=== PATIENT | female | born 1960 | race Caucasian/White ===

== ENCOUNTER → 2016-06-06 | Outpatient (CLI) | payer BC ==
--- NOTE | 2016-06-06 23:08 | CONS ---
DATE OF CONSULTATION: 06/06/2016 REASON FOR CONSULTATION: Sleep apnea. 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 She is obese and she has a BMI of 55.1. She also snores loudly. She had 2 occasions when she was waking up from sleep due to increased tachycardia and palpitations, and she thinks that these were SVTs. No official documentation through Holter monitoring has been done. The patient has consulted with Dr. Simon, her scrub woman, who in turn recommended a sleep evaluation, knowing that these tachycardic events occurred while the patient was sleeping and it woke her up from sleep. In addition, the patient has obvious features that would suggest the possibility of obstructive sleep apnea. The patient typically goes to bed around 11 p.m., wakes up at 6:30 a.m. in the morning. She has some degree of tiredness and fatigue and sleepiness and she has an Forsyth score of 10. She prefers to sleep on her side, and she does not sleep on her back. She wakes up many times in the middle of the night and she counts at least 3 to 4 ( ) where she wakes up. No sleep paralysis. No hallucinations. No cataplexy. No restlessness in the lower extremities. PAST MEDICAL HISTORY: 1. Obesity. 2. Questionable nocturnal arrhythmias; possibly SVTs on 2 separate occasions. 3. Hypertension. 4. Hypothyroidism. 5. Diabetes mellitus. 6. Hyperlipidemia. 7. History of thyroid cancer, status post thyroidectomy. The patient is being treated with thyroid hormone replacement. PAST SURGICAL HISTORY: None significant for the past 3 years. DRUG ALLERGIES: DIFLUCAN. Outpatient medication list includes: 1. Lotrel. 2. Synthroid. 3. Vitamin D. 4. Metoprolol. 5. Metformin. 6. Simvastatin. FAMILY HISTORY: Coronary artery disease in her father. SOCIAL HISTORY: The patient is a nonsmoker. No history of alcohol. No history of IV drugs. She is a teacher at [employer]. REVIEW OF SYSTEMS: Twelve-point review of systems was done. Positive findings were all mentioned above in the history of present illness. CURRENT VITALS: BP is 145/86, pulse 96, respirations 16, temperature 97.8. Saturations are 96% on room air. Weight is 287. Height is 63-1/2 inches. Neck size 17 inches. Forsyth score is at 10. BMI is 55.1. GENERAL APPEARANCE: Calm, comfortable, obese. HEENT: Negative for goiter or neck masses. Mallampati class IV. LUNGS: Clear to auscultation. HEART: Sounds are regular rate and rhythm. Normal S1, S2. No S3. No S4. No murmurs. ABDOMEN: Soft, nontender. No organomegaly. EXTREMITIES: There is no edema. There is no cyanosis or clubbing at this point. IMPRESSION: 1. Obstructive sleep apnea suspected, currently under investigation. 2. Nocturnal tachyarrhythmia, currently under investigation. 3. Obesity with a body mass index of 55. 4. Hypersomnia. Forsyth score of 10. 5. Hypertension. 6. Hypothyroidism. 7. Thyroid cancer with previous thyroidectomy. 8. Diabetes mellitus. 9. Hyperlipidemia. PLAN: 1. Encourage weight loss. 2. Follow up on thyroid function tests through the primary care physician. 3. Proceed with a polysomnogram to evaluate for any significant sleep breathing disorder that may need to be treated.
== END | disposition home or self-care (01) ==
LOC: SLEEP 13:41
PROVIDERS: ATTEND Internal Medicine Critical Care Medicine
DX: G47.33 Obstructive sleep apnea (adult) (pediatric) (principal); R00.0 Tachycardia, unspecified; E66.9 Obesity, unspecified; Z68.43 Body mass index [BMI] 50.0-59.9, adult; G47.10 Hypersomnia, unspecified; I10 Essential (primary) hypertension; E03.9 Hypothyroidism, unspecified; Z85.850 Personal history of malignant neoplasm of thyroid; Z98.890 Other specified postprocedural states; E11.9 Type 2 diabetes mellitus without complications; E78.5 Hyperlipidemia, unspecified; Z79.84 Long term (current) use of oral hypoglycemic drugs; Z79.899 Other long term (current) drug therapy; Z88.8 Allergy status to other drugs, medicaments and biological substances
CPT/HCPCS: 99211

== ENCOUNTER → 2016-06-29 | Outpatient (CLI) | payer BC ==
--- NOTE | 2016-07-03 11:40 | MM ---
Reason for exam: screening (asymptomatic). Last mammogram was performed 1 year and 2 months ago. History: Patient history of other cancer. Benign excisional biopsy of the left breast, February 2004. Benign stereotactic core biopsy of the left breast, January 08, 2003. Benign stereotactic core biopsy of the left breast, August 05, 1999. 2 core biopsies of the left breast. Taking unspecified hormones for 2 years beginning at age 45. Physical Findings: A clinical breast exam by your physician is recommended on an annual basis and results should be correlated with mammographic findings. MG 3D Screening Mammo W/Cad Bilateral CC and MLO view(s) were taken. Prior study comparison: April 21, 2015, bilateral MG 3d screening mammo w/cad. October 27, 2013, bilateral MG screening mammo w CAD. There are scattered fibroglandular densities. Finding: There are typically benign calcifications in both breasts. Previous mammotome biopsy in the left breast. No significant changes in finding since April 21, 2015 and October 27, 2013. ASSESSMENT: Benign, BI-RAD 2 RECOMMENDATION: Routine screening mammogram of both breasts in 1 year.
== END | disposition home or self-care (01) ==
LOC: RADMAMWWP 07:22
PROVIDERS: ATTEND Obstetrics & Gynecology
DX: Z12.31 Encounter for screening mammogram for malignant neoplasm of breast (principal)
CPT/HCPCS: 77063; G0202

== ENCOUNTER → 2016-10-31 | Outpatient (CLI) | payer BC ==
--- NOTE | 2016-11-01 07:37 | PN ---
This patient is 56 years old and she is coming in for a compliancy check. The patient was diagnosed having obstructive sleep apnea with an AHI of 21 and currently she is in an Auto CPAP unit. She is doing well, no complaints. ( ) depression is at 14. She is averaging around 5.6 hours of CPAP use every night. Here CPAP is for more than 4 hours in 24 hours of the past 30 days. AHI while on treatment was found to be 1.6. She is looking for an alternative mask other than the one that she has and we were able to give her a new one, the nasal pillow based on our mask fitting today. BP is 155/74, pulse 80, respirations 16, weight is 280, BMI is 48. Height is 5, 4. GENERAL APPEARANCE: Calm, comfortable. HEENT: Short neck, crowding of posterior pharynx. LUNGS: Diminished, otherwise clear. Heart sounds regular rate and rhythm, no S1, S2. ABDOMEN: Soft, nontender. No organomegaly. EXTREMITIES: No edema, no cyanosis or clubbing. IMPRESSION: 1. Symptomatic obstructive sleep apnea with an apnea-hypopnea index of 21.4 with successful CPAP therapy. 2. Snoring, recovered. 3. Obesity, body mass index is a 48. 4. Hypertension with hypothyroidism. 5. Diabetes mellitus. 6. Hyperlipidemia. 7. Thyroid cancer. PLAN: 1. Continue same setting in terms of CPAP therapy. 2. Encourage further weight loss. 3. Compliance data is adequate. 4. Will continue to follow. [facility]
== END ==
LOC: SLEEP 15:00
PROVIDERS: ATTEND Internal Medicine Critical Care Medicine
DX: G47.33 Obstructive sleep apnea (adult) (pediatric) (principal); E66.9 Obesity, unspecified; E03.9 Hypothyroidism, unspecified; E78.5 Hyperlipidemia, unspecified; E11.9 Type 2 diabetes mellitus without complications; I10 Essential (primary) hypertension; C73 Malignant neoplasm of thyroid gland

== ENCOUNTER → 2017-11-26 | Outpatient (CLI) | payer BC ==
--- NOTE | 2017-11-28 10:06 | MM ---
Reason for exam: screening (asymptomatic). Last mammogram was performed 1 year and 5 months ago. History: Patient history of other cancer. Benign excisional biopsy of the left breast, February 2004. Benign stereotactic core biopsy of the left breast, January 08, 2003. Benign stereotactic core biopsy of the left breast, August 05, 1999. 2 core biopsies of the left breast. Taking unspecified hormones for 2 years beginning at age 45. Physical Findings: A clinical breast exam by your physician is recommended on an annual basis and results should be correlated with mammographic findings. MG 3D Screening Mammo W/Cad Bilateral CC and MLO view(s) were taken. Prior study comparison: June 29, 2016, bilateral MG 3d screening mammo w/cad. April 21, 2015, bilateral MG 3d screening mammo w/cad. There are scattered fibroglandular densities. Previous mammotome biopsy in the left breast. There is chronic nodularity in the right breast. No significant changes when compared with prior studies. ASSESSMENT: Benign, BI-RAD 2 RECOMMENDATION: Routine screening mammogram of both breasts in 1 year.
== END | disposition home or self-care (01) ==
LOC: RADMAMWWP 15:34
PROVIDERS: ATTEND Family Medicine
DX: Z12.31 Encounter for screening mammogram for malignant neoplasm of breast (principal)
CPT/HCPCS: 77063; 77067

== ENCOUNTER → 2019-06-13 | Outpatient (CLI) | payer BC ==
--- NOTE | 2019-06-16 08:23 | MM ---
Reason for exam: screening (asymptomatic). Last mammogram was performed 1 year and 7 months ago. History: Patient has history of other cancer at age 45. Benign excisional biopsy of the left breast, February 2004. Benign stereotactic core biopsy of the left breast, January 08, 2003. Benign stereotactic core biopsy of the left breast, August 05, 1999. 2 core biopsies of the left breast. Took unspecified hormones for 2 years beginning at age 45. Physical Findings: A clinical breast exam by your physician is recommended on an annual basis and results should be correlated with mammographic findings. MG 3D Screening Mammo W/Cad Bilateral CC and MLO view(s) were taken. Prior study comparison: November 26, 2017, bilateral MG 3d screening mammo w/cad. June 29, 2016, bilateral MG 3d screening mammo w/cad. The breast tissue is heterogeneously dense. This may lower the sensitivity of mammography. No suspicious abnormality. Left biopsy marker noted. No significant changes when compared with prior studies. ASSESSMENT: Negative, BI-RAD 1 RECOMMENDATION: Routine screening mammogram of both breasts in 1 year.
== END | disposition home or self-care (01) ==
LOC: RADMAMWWP 11:14
PROVIDERS: ATTEND Family Medicine
DX: Z12.31 Encounter for screening mammogram for malignant neoplasm of breast (principal)
CPT/HCPCS: 77063; 77067

== ENCOUNTER → 2021-03-30 | Outpatient (CLI) | payer BC ==
--- NOTE | 2021-03-30 16:15 | BD ---
EXAMINATION TYPE: Axial Bone Density DATE OF EXAM: 03/30/2021 COMPARISON: NONE CLINICAL HISTORY: Height: 64 Weight: 300.4 FRAX RISK QUESTIONS: Alcohol (3 or more units per day): no Family History (Parent hip fracture): no Glucocorticoids (More than 3mos): no (Ex: prednisone, prednisolone, methylprednisolone, dexamethasone, and hydrocortisone). History of Fracture in Adulthood: yes Secondary Osteoporosis: 1. Type 1 Diabetes: no 2. Hyperthyroidism: no 3. Menopause before 45: yes 4. Malnutrition: no 5. Chronic liver disease: no Rheumatoid Arthritis: no Current Tobacco Use: no RISK FACTORS HISTORY OF: Surgery to Spine/Hip(right/left)/Wrist (right/left): no Family History of Osteoporosis: no Active: yes Diet low in dairy products/other sources of calcium: no Postmenopausal woman: yes Lost more than 2 inches in height since high school: no Adrenal Insufficiency: no MEDICATIONS: vit d, water pill, blood pressure meds, crestor, Thyroid Medications: synthroid How Long: since 2005 Additional History: thyroid cancer 2005 EXAM MEASUREMENTS: Bone mineral densitometry was performed using the [employer] System. Bone mineral density as measured about the Lumbar spine is: ----- L1-L4(G/cm2): 1.141 T Score Values are as follows: ----- L2: -1.5 ----- L3: 0.0 ----- L4: 0.9 ----- L1-L4: -0.3 Bone mineral density : baseline Bone mineral density about the R hip (g/cm2): 0.945 Bone mineral density about the L hip (g/cm2): 0.838 T Score values are as follows: -----R Neck: -0.7 -----L Neck: -1.4 -----R Total: -0.3 -----L Total: -0.8 Bone mineral density : baseline IMPRESSION: Osteopenia (T Score between -2.5 and -1). There is slightly increased risk of fracture and the patient may be considered for treatment. Re-Screen 2-5 years. NOTE: T-SCORE=SD OF THE YOUNG ADULT MEAN.
--- NOTE | 2021-04-01 11:43 | MM ---
Reason for exam: screening (asymptomatic). Last mammogram was performed 1 year and 10 months ago. History: Patient is postmenopausal and has history of other cancer at age 45. Benign excisional biopsy of the left breast, February 2004. Benign stereotactic core biopsy of the left breast, January 08, 2003. Benign stereotactic core biopsy of the left breast, August 05, 1999. 2 core biopsies of the left breast. Took unspecified hormones for 2 years beginning at age 45. Physical Findings: A clinical breast exam by your physician is recommended on an annual basis and results should be correlated with mammographic findings. MG 3D Screening Mammo W/Cad Bilateral CC and MLO view(s) were taken. Prior study comparison: June 13, 2019, bilateral MG 3d screening mammo w/cad. November 26, 2017, bilateral MG 3d screening mammo w/cad. There are scattered fibroglandular densities. Previous mammotome biopsy in the left breast. There is no discrete abnormality. ASSESSMENT: Negative, BI-RAD 1 RECOMMENDATION: Routine screening mammogram of both breasts in 1 year.
== END | disposition home or self-care (01) ==
LOC: RADMAMWWP 13:36
PROVIDERS: ATTEND Obstetrics & Gynecology
DX: Z12.31 Encounter for screening mammogram for malignant neoplasm of breast (principal); N95.1 Menopausal and female climacteric states; M85.80 Other specified disorders of bone density and structure, unspecified site
CPT/HCPCS: 77063; 77067; 77080